=== PATIENT | male | born 1965 | race Caucasian/White ===

== ENCOUNTER 2022-10-01 20:25 | Emergency (ER) | payer OTHER ==
[~2022-10-01] VITALS: Ht 170.2 cm; Wt 74.0 kg
[2022-10-01 20:58] VITALS: BP 120/78
[2022-10-01] MEDS: IBUPROFEN 600MG TABLET PO ONE (20:58)
[2022-10-01] MEDS: TRAMADOL 50MG TABLET PO ONE (20:58)
[2022-10-02] MEDS ORDERED: TRAM50TA MT (01:13)
[2022-10-02] MEDS ORDERED: IBUP-2029 MT (01:13)
[2022-10-02] MEDS ORDERED: IBUP-2028 MT (01:13)
[2022-10-02] MEDS ORDERED: TAMS-11 MT (01:13)
[2022-10-02] MEDS ORDERED: ONDA4TAB11 PO (01:15)
== END 2022-10-02 01:45 | disposition home or self-care (01) ==
LOC: ER 20:25
DX: N20.1 Calculus of ureter (principal); N23 Unspecified renal colic; N13.30 Unspecified hydronephrosis
CPT/HCPCS: 74176; 99284